=== PATIENT | female | born 1960 | race Two or more races ===

== ENCOUNTER → 2024-11-09 | Emergency (ER) | payer MEDICAID, OTHER ==
[~2024-11-09] VITALS: Ht 157.5 cm; Wt 75.9 kg
[~2024-11-09] MED LIST: LEVO500T91 PO
[2024-11-09 09:48] VITALS: TEMP 98.2
[2024-11-09 09:49] VITALS: PULSE 89; RESP 18; O2SAT 99
[2024-11-09] MEDS: SODIUM CHLORIDE 0.9% 1,000 ML IV ONE (10:07)
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
[2024-11-09 10:41] LABS: Basophils # (auto) 0 10 ^3/uL (0-0.2); Basophils % (auto) 0.2 % (0.0-2.0); Eosinophils # (auto) 0 10 ^3/uL (0-0.8); Eosinophils % (auto) 0.1 % (0.0-7.0); Hematocrit 44.7 % (36.0-46.0); Hemoglobin 15.6 g/dL (12.2-16.2); Lymphocytes # (auto) 0.7 10 ^3/uL (0.4-5.4); Lymphocytes % (auto) 5.7 % (10.0-50.0); Mean Corpuscular Hemoglobin 29.9 pg (28.0-32.0); Mean Corpuscular Volume 85.4 fL (80.0-100.0); Monocytes # (auto) 0.6 10 ^3/uL (0-1.3); Monocytes % (auto) 4.8 % (0.0-12.0); Neutrophils # (auto) 11.5 10 ^3/uL (1.6-8.6); Neutrophils % (auto) 89.2 % (37.0-80.0); Nucleated Red Blood Cells % 0.2 %; Platelet Count (auto) 137 10^3/uL (140-450); Red Blood Cells 5.23 10^6/uL (4.0-5.20); Red Cell Distribution Width 14.2 % (11.8-14.3); White Blood Cell 12.9 10^3/uL (4.4-10.8)
[2024-11-09 10:46] LABS: Sodium 141 mmol/L (136-145)
[2024-11-09 10:47] LABS: Anion Gap 8 (5-15); Calcium 9.2 mg/dL (8.7-10.4); Carbon Dioxide 23 mmol/L (20-31)
[2024-11-09 10:51] LABS: Chloride 110 mmol/L (98-107); Potassium 3.4 mmol/L (3.5-5.1)
[2024-11-09 10:52] LABS: Blood Urea Nitrogen 13 mg/dL (9-23)
[2024-11-09 10:59] LABS: Glucose 134 mg/dL (74-106)
[2024-11-09 11:57] LABS: Rapid Influenza A Negative (Negative); Rapid Influenza B Negative (Negative)
[2024-11-09] MEDS: POTASSIUM EFFERVESENT TAB 25 MEQ GT ONE (12:30)
[2024-11-09 12:42] LABS: Urine Bacteria FEW /hpf (None Seen); Urine Blood 3+ /uL (Negative); Urine Protein, UAD 2+ (Negative); Urine Specific Gravity 1.008 (1.001-1.035); Urine Squamous Epithelial Cell FEW /hpf (<5); Urine Urobilinogen Normal (Negative); Urine WBC 117 /hpf (0 - 5)
[2024-11-09 12:45] LABS: Urine Clarity Cloudy (Clear); Urine Color Light-Yellow (Yellow)
[2024-11-09] MEDS: cefTRIAXone 1GM/50ML D5W 50 ML IV ONE (13:24)
[2024-11-09 14:23] VITALS: BP 128/71; PULSE 84; RESP 17; O2SAT 97
== END | disposition home or self-care (01) ==
LOC: ER 09:20 → EDBD 09:20
DX: N12 Tubulo-interstitial nephritis, not specified as acute or chronic (principal); G82.20 Paraplegia, unspecified; Z79.2 Long term (current) use of antibiotics
CPT/HCPCS: 36415; 80048; 81001; 85025; 87086; 87804; 96361; 96365; 99284; J0696; J7030